=== PATIENT | male | born 1995 | race Two or more races ===

== ENCOUNTER 2018-01-14 20:39 | Emergency (ER) | payer BC ==
[2018-01-14] MEDS ORDERED: Polymyx/Trimethoprim OPTH* 10 ML BTL BOTH EYES ONE (21:32)
--- NOTE | 2018-01-14 21:32 | ED ---
Throat Pain/Nasal Congestion - HPI Summary HPI Summary: 22 -year-old male presents with eye erythema and sore throat for the past 4 days. He has been taking Claritin-D and magic mouth wash and has not improved. He denies any drainage from his eyes. He admits to sinus congestion. He denies any change in vision. No headache. No cough. She admits occasional nausea but no vomiting. No bowel pain. He has history of strep. He has followed-up with [facility] is waiting for strep results. He denies any history of MRSA. He has no medical conditions. He denies any foreign body. He states that his eyes feel itchy. He has never had this before. - History of Current Complaint Chief Complaint: EDGeneral Time Seen by Provider: 01/14/18 20:53 - Allergies/Home Medications Allergies/Adverse Reactions: Allergies Allergy/AdvReac Type Severity Reaction Status Date / Time amoxicillin Allergy Rash Verified 01/14/18 20:45 PMH/Surg Hx/FS Hx/Imm Hx Endocrine/Hematology History: Denies: Hx Anticoagulant Therapy Respiratory History: Denies: Hx Asthma Infectious Disease History: No Infectious Disease History: Denies: Traveled Outside the [place] in Last 30 Days - Family History Known Family History: Negative: Respiratory Disease - Social History Alcohol Use: None Substance Use Type: Reports: None Smoking Status (MU): Never Smoked Tobacco Review of Systems Negative: Fever Positive: Erythema Positive: Sore Throat Negative: Chest Pain Negative: Shortness Of Breath, Cough All Other Systems Reviewed And Are Negative: Yes Physical Exam Triage Information Reviewed: Yes Vital Signs On Initial Exam: Initial Vitals Temp Pulse Resp BP Pulse Ox 98.5 F 92 16 137/94 100 01/14/18 20:40 01/14/18 20:40 01/14/18 20:40 01/14/18 20:40 01/14/18 20:40 Vital Signs Reviewed: Yes Appearance: Positive: Well-Appearing Skin: Positive: Warm, Dry Head/Face: Positive: Normal Head/Face Inspection Eyes: Positive: EOMI, CINDY, Conjunctiva Inflammed. Negative: Discharge ENT: Positive: Pharyngeal erythema, TMs normal, Uvula midline, Other - soft palate symmetric. Negative: Tonsillar swelling, Tonsillar exudate, Trismus, Muffled voice Respiratory/Lung Sounds: Positive: Clear to Auscultation, Breath Sounds Present Cardiovascular: Positive: Normal, RRR Abdomen Description: Positive: Nontender, Soft Bowel Sounds: Positive: Present Musculoskeletal: Positive: Normal Neurological: Positive: Normal Psychiatric: Positive: Normal Diagnostics - Vital Signs Vital Signs Temp Pulse Resp BP Pulse Ox 01/14/18 20:40 98.5 F 92 16 137/94 100 - Laboratory Lab Statement: Any lab studies that have been ordered have been reviewed, and results considered in the medical decision making process. EENT Course/Dx - Course Course Of Treatment: 22 -year-old male presents with eye erythema and sore throat for the past 4 days. He has been taking Claritin-D and magic mouth wash and has not improved. He denies any drainage from his eyes. He admits to sinus congestion. He denies any change in vision. No headache. No cough. She admits occasional nausea but no vomiting. No bowel pain. He has history of strep. He has followed-up with [facility] is waiting for strep results. He denies any history of MRSA. He has no medical conditions. He denies any foreign body. He states that his eyes feel itchy. He has never had this before. Exam eyes conjunctiva injected. No drainage noted. Pharynx erythematous. We will place on antibiotics although likely viral to prevent superimposed infection. will get monostat bu patient does not want to wait for results. Told to continue the Claritin-D. We will place on Polytrim. Patient understands agrees with plan. - Differential Diagnoses Differential Diagnoses: Allergic Rhinitis, Conjunctivitis, Sinusitis - Diagnoses Provider Diagnoses: Viral conjunctivitis, Pharyngitis Discharge - Sign-Out/Discharge Documenting (check all that apply): Patient Departure - Discharge Plan Condition: Good Disposition: HOME Patient Education Materials: Conjunctivitis (ED) Referrals: Joby Dillon MD [Medical Doctor] - Additional Instructions: Place 1 drop in eye four times a day for 5 days Continue claritin daily use saline or artificial tears for symptomatic relief Follow up with ophthalmology if no improvement Return to ED if develop any new or worsening symptoms - Billing Disposition and Condition Condition: GOOD Disposition: Home
[2018-01-14 22:42] VITALS: BP 127/77
== END 2018-01-14 22:26 | disposition home or self-care (01) ==
LOC: ED 20:39
DX: B30.9 Viral conjunctivitis, unspecified (principal); J02.9 Acute pharyngitis, unspecified; Z88.0 Allergy status to penicillin
CPT/HCPCS: 36415; 86308; 99282

== ENCOUNTER 2018-02-22 19:54 | Emergency (ER) | payer BC ==
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
[2018-02-22 23:05] VITALS: BP 119/63
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
--- NOTE | 2018-02-23 17:51 | PN ---
Progress Note - Progress Note Date of Service: 02/23/18 Note: radiology report in morning read xray ankle as #. Subtle impaction fracture at the lateral malleolus. Cortical buckling most conspicuous posteriorly on the lateral view. #. The ankle mortise remains congruent. #. Talocrural joint effusion. #. Soft tissue swelling most prominent over the lateral malleolus. dr de anda called and spoke with patient. patient was given gel splint and script for elbow crutches as has follow up with ortho already
== END 2018-02-22 23:04 | disposition home or self-care (01) ==
LOC: ED 19:54
DX: S62.111A Displaced fracture of triquetrum [cuneiform] bone, right wrist, initial encounter for closed fracture (principal); M25.571 Pain in right ankle and joints of right foot; M25.561 Pain in right knee; V18.4XXA Pedal cycle driver injured in noncollision transport accident in traffic accident, initial encounter; Y93.55 Activity, bike riding; Y92.9 Unspecified place or not applicable; Z88.3 Allergy status to other anti-infective agents
CPT/HCPCS: 99282